=== PATIENT | female | born 1940 | race Caucasian/White ===

== ENCOUNTER 2020-05-20 17:39 | Emergency (ER) | payer MEDICARE, SELFPAY ==
--- NOTE | ~2020-05-20 | XR_ITS ---
EXAMINATION: XR hand LT min 3V DATE: 05/20/2020 18:49 INDICATION: Left hand pain and bruising post fall 3 days prior TECHNIQUE: Posteroanterior, oblique and lateral views of the left hand were obtained. COMPARISON: None. FINDINGS: There are normally displaced oblique extra-articular diaphyseal fractures of the left fourth and fift h metacarpals, both with mild palmar angulation. No other fractures identified. Polyarticular osteoar thritis, severe at the first carpometacarpal and second fifth distal interphalangeal joints, moderate severity at the triscaphe and third distal interphalangeal joint and mild at the left wrist, midcarp al and multiple metacarpophalangeal and multiple additional interphalangeal joints. Mild degenerative cystic change versus chronic erosions at the tip of the ulnar styloid process. Diffuse osteopenia. S oft tissue swelling over the dorsum of the hand. IMPRESSION: 1. Minimally displaced, mildly angulated extra-articular fractures of the fourth and fifth metacarpal diaphyses. 2. Mild to severe polyarticular osteoarthritis at the left hand and wrist. 3. Diffuse osteopenia. Reviewed, dictated and finalized at location A. IMPRESSION: 1. Minimally displaced, mildly angulated extra-articular fractures of the fourt h and fifth metacarpal diaphyses. 2. Mild to severe polyarticular osteoarthritis at the left hand and wrist. 3. Diffuse osteopenia.
[2020-05-20 17:49] VITALS: BP 127/72; PULSE 99; RESP 16; TEMP 36.3; O2SAT 99
--- NOTE | 2020-05-20 18:00 | ED.GENADULT ---
HPI - General Adult General Chief complaint: Extremity Injury, Upper Stated complaint: left hand injury Time Seen by Provider: 05/20/20 17:45 Source: patient Mode of arrival: ambulatory Limitations: no limitations History of Present Illness HPI narrative: Patient is a 79-year-old female who presents to emergency department for evaluation of left hand injury that occurred patient notes that she tripped and fell on injuring the hand where she now has bruising and swelling with tenderness over the third through fifth metacarpals patient notes abrasion of the left wrist with minimal pain patient denies other injuries or complaints and is otherwise resting comfortably in the room upon arrival in no distress and has not been seen for this complaint Related Data Home Medications Medication Instructions Recorded Confirmed calcium carbonate 600 mg PO BID 06/28/19 09/02/19 cholecalciferol (vitamin D3) 5,000 unit PO DAILY 06/28/19 09/02/19 [Vitamin D3] furosemide 20 mg PO DAILY 06/28/19 09/02/19 vitamins A,C,O-oqwy-lwuapo 14,320 1 cap PO BID 09/02/19 09/02/19 unit-226 mg-200 unit capsule Allergies Allergy/AdvReac Type Severity Reaction Status Date / Time codeine Allergy Unknown unknown Verified 05/20/20 18:10 Sulfa (Sulfonamide Allergy Unknown unknown Verified 05/20/20 18:10 Antibiotics) sulfamethizole Allergy Unknown Pruritic Verified 05/20/20 18:10 rash trimethoprim Allergy Unknown Pruritic Verified 05/20/20 18:10 rash Review of Systems Review of Systems: All systems reviewed & are unremarkable except as noted in HPI and below PMFSH Past Medical History Medical History Breast cancer (~05/01/14) right, stage IIa DVT (deep venous thrombosis) Family history of heart disease Hyperlipidemia LDL goal <100 Osteoarthritis involving multiple joints on both sides of body Paroxysmal supraventricular tachycardia since her Pulmonary embolism (~09/2013) Surgical History Surgical History H/O right mastectomy (~05/04/14) right partial mastectomy w/ rt axillary sentinel node biopsy (Dr. Kimmy Blanc) per [facility] care records Family History Family History (Updated 09/02/19 @ 15:39 by Jacquie Kay, ) Mother Family history of osteoporosis Hypertension Cerebrovascular accident Father Heart disease Sibling Lymphoma Other Family history of arthritis Social History Social History Smoking status: Never smoker Alcohol intake: never Substance use: never Gender identity (if verbalized by the patient): Female Spiritual care concerns: No Exam Narrative: Exam Narrative: GENERAL: Well-appearing, well-nourished, and in no acute distress. HEAD: Normocephalic, atraumatic. EYES: PERRLA and EOMI. ENT: Nares clear, no rhinorrhea or epistaxis. Mucous membranes moist. CHEST: Clear to auscultation. No respiratory distress. No wheezes rales or rhonchi HEART: Regular rate and rhythm. No murmur heard. EXTREMITIES: Normal range of motion. No edema. Bruising swelling and tenderness of the dorsal surface of the left hand extending to the wrist does not have tenderness of the wrist. Abrasion of the elbow no tenderness or swelling SKIN: Warm, dry, no rash. NEURO: No focal deficits. Alert and oriented x3. Neurovascularly intact. Capillary refill less than 2 seconds PSYCH: Normal mood and affect. Course Course Emergency Course: Patient in the room in no distress placed in ulnar gutter splint will be referred to hand surgery for further evaluation patient agrees with this plan. Attempts were made to contact hand surgery Consultations Consultation #1: Discussed case with hand surgeon who will follow patient in clinic Date: 05/20/20 Time: 19:29 Vital Signs Vital signs: Vital Signs Temperature 97.4
--- NOTE | 2020-05-20 18:09 | PC.NURSE ---
Patient had ring removed from the left 4th finger due to swelling and injury to the left hand. Patient's ring was placed into a clean specimen cup and given directly to the patient.
[2020-05-20 19:44] VITALS: BP 135/88; PULSE 89; RESP 20; TEMP 36.6; O2SAT 99
== END 2020-05-20 19:51 | disposition home or self-care (01) ==
PROVIDERS: Emergency Provider Emergency Medicine; PCP Family Medicine
DX: S62.395A Other fracture of fourth metacarpal bone, left hand, initial encounter for closed fracture (principal); S62.397A Other fracture of fifth metacarpal bone, left hand, initial encounter for closed fracture; E78.5 Hyperlipidemia, unspecified; M19.90 Unspecified osteoarthritis, unspecified site; Z86.711 Personal history of pulmonary embolism; Z86.718 Personal history of other venous thrombosis and embolism; Z90.11 Acquired absence of right breast and nipple; Z85.3 Personal history of malignant neoplasm of breast; M85.842 Other specified disorders of bone density and structure, left hand; M19.032 Primary osteoarthritis, left wrist; M18.9 Osteoarthritis of first carpometacarpal joint, unspecified; M19.042 Primary osteoarthritis, left hand; W01.0XXA Fall on same level from slipping, tripping and stumbling without subsequent striking against object, initial encounter
CPT/HCPCS: 29125; 73130; 99284; A4565

== ENCOUNTER 2020-06-13 01:43 | Outpatient (CLI) | payer MEDICARE, SELFPAY ==
[2020-06-13 19:05] LABS: SARS-CoV-2 RNA PCR Negative
== END 2020-06-13 01:44 | disposition home or self-care (01) ==
LOC: ANHCOVIDDT 01:44
PROVIDERS: PCP Family Medicine; Visit Provider Plastic Surgery
DX: Z01.812 Encounter for preprocedural laboratory examination (principal); Z20.828 Contact with and (suspected) exposure to other viral communicable diseases
CPT/HCPCS: 87635; C9803; U0003

== ENCOUNTER 2020-06-15 01:25 | Day surgery (SDC) | payer MEDICARE, SELFPAY ==
[2020-06-13 12:27] VITALS: BMI 36.6
[2020-06-15] VITALS (8 sets, daily range): BP systolic 127–143; BP diastolic 57–78; PULSE 18–85; RESP 13–20; TEMP 36.3–36.5; O2SAT 94–99
--- NOTE | ~2020-06-15 | XR_ITS ---
EXAMINATION: XR surgery orthopedic DATE: 06/15/2020 12:01 INDICATION: Left fourth and fifth metacarpal fractures. Fluoroscopy utilized during open reduction an d internal fixation TECHNIQUE: 4 fluoroscopic images of the left hand were obtained during procedure performed by Dr. Sarah bashir. Radiologist was not present for the imaging or procedure. The amount of fluoroscopy time used dur ing this procedure was 0.3 minutes. COMPARISON: 05/20/2020 FINDINGS: Again seen are minimally displaced oblique diaphyseal fractures of the left fourth and fifth metacarp als. The fifth metacarpal fracture is now fixed with 3 screws. The fourth metacarpal fracture remains unfixed. Mild osteoarthritis at the first metacarpophalangeal joint. Expected small amount of gas in the soft tissues at the operative bed. IMPRESSION: 1. Screw fixation of the left fifth metacarpal fracture and no evident fixation of the fourth metacar pal fracture, both remaining minimally displaced in near-anatomic alignment. See procedure note for f urther detail. Reviewed, dictated and finalized at location B. IMPRESSION: 1. Screw fixation of the left fifth metacarpal fracture and no evident fixation of the fourth metacarpal fracture, both remaining minimally displaced in near- anatomic alignment. See procedure note for further detail.
--- NOTE | 2020-06-15 07:02 | WPDHPUPDATE1 ---
History and Physical Update Update Date/Time: 06/15/20 07:02 History and Physical has been reviewed, including an updated exam of the patient. There are NO changes in the patient's condition. Risks, benefits, and alternatives have been discussed and questions answered. Patient agrees to proceed with procedure.
[2020-06-15] MEDS: LACTATED RINGERS 1,000 ML 30 ML IV CONT ×2 (09:18→12:04)
--- NOTE | 2020-06-15 09:22 | WPDANESEPPF ---
Anes - Initial Pre Proc Eval Procedure: Operation Date: 06/15/20 10:30 Proposed Procedures p Open Reduction Internal Fixation Left Fifth, Possible Left Fourth Metacarpal Shaft Fracture - Uche Rosales MD Date/Time: 06/15/20 09:22 Surgeon: Uche Rosales MD Pre Op Diagnosis: left 5th and 4th metacarpal shaft fx Patient Data Age: 80 Gender: F Height: 5 ft 5 in Weight: 100 kg Allergies Allergy/AdvReac Type Severity Reaction Status Date / Time Sulfa (Sulfonamide Allergy Severe Swelling Verified 06/13/20 12:14 Antibiotics) sulfamethizole Allergy Severe Pruritic Verified 06/13/20 12:14 rash trimethoprim Allergy Severe Pruritic Verified 06/13/20 12:14 rash codeine Allergy Mild Nausea Verified 06/13/20 12:14 Home Medications Medication Instructions Recorded Confirmed Type calcium carbonate 600 mg PO BID 06/28/19 06/13/20 History cholecalciferol (vitamin D3) 5,000 unit PO DAILY 06/28/19 06/13/20 History [Vitamin D3] furosemide 20 mg PO DAILY PRN 06/28/19 06/13/20 History sertraline 100 mg tablet 100 mg PO DAILY #90 tablet 09/02/19 06/13/20 Rx vitamins A,C,C-cbdd-mgmuzw 14,320 1 cap PO BID 09/02/19 06/13/20 History unit-226 mg-200 unit capsule verapamil 180 mg tablet,extended 180 mg PO DAILY #90 tablet 03/01/20 06/13/20 Rx release apixaban 5 mg tablet 5 mg PO BID #90 tablet 04/14/20 06/13/20 Rx acetaminophen [Tylenol Arthritis 650 mg PO Q8H PRN #7 tablet 05/20/20 06/13/20 Rx Pain] Patient hx anesthesia problems: none Family hx anesthesia problems: none PMFSH Past Medical History Medical History Breast cancer (~05/01/14) right, stage IIa DVT (deep venous thrombosis) Family history of heart disease Hyperlipidemia LDL goal <100 Osteoarthritis involving multiple joints on both sides of body Paroxysmal supraventricular tachycardia since her ' Pulmonary embolism (~09/2013) Surgical History Surgical History H/O right mastectomy (~05/04/14) right partial mastectomy w/ rt axillary sentinel node biopsy (Dr. Kimmy Blanc) per [facility] care records Family History Family History Mother Family history of osteoporosis Hypertension Cerebrovascular accident Father Heart disease Sibling Lymphoma Other Family history of arthritis Social History Social History Smoking status: Never smoker Alcohol intake: never Substance use: never Substance use type: does not use Living arrangements: with family Gender identity (if verbalized by the patient): Female Spiritual care concerns: No Anes - Eval Final PreProcedure Day of Procedure 06/15/20 09:22 Patient weight: obese Heart: regular rate and rhythm Lungs: clear to auscultation Airway: Mallampati scale class II Neurological: alert and oriented Last oral intake: >/= 8 hours ASA classification: IV Emergent: no Anesthetic plan: proceed Anesthesia type and monitoring: general LMA and standard monitoring Informed Consent: The patient's anesthetic plan and its attendant risks and benefits were discussed with the patient/family/POA. Questions were solicited and answers provided to the satisfaction of the patient/family/POA.
[2020-06-15] MEDS: ceFAZolin 2 GM/D5W 50 ML 2 GM/50 ML BAG IVPB (09:44)
[2020-06-15 09:46] LABS: Anion Gap 8 mmol/L (8-16); Blood Urea Nitrogen 24 mg/dL (7-17); Calcium 8.9 mg/dL (8.4-10.2); Carbon Dioxide 29 mmol/L (22-30); Chloride 106 mmol/L (98-107); Estimated CRCL calculation 59 ml/min; Estimated Glomerular Filt Rate > 60; Glucose 99 mg/dL (65-105); Potassium 3.9 mmol/L (3.4-5.0); Sodium 143 mmol/L (137-145)
[2020-06-15] MEDS: LIDO 1%/EPINEPHRINE 1:100,000 20 ML VIAL 8 ML INFILTRATE (10:18)
--- NOTE | 2020-06-15 11:42 | PM.OP ---
Procedure Note - Brief Procedure Note - Brief Date of procedure: 06/15/20 Pre-op diagnosis: left 5th and 4th metacarpal shaft fx Post-op diagnosis: same Procedure performed: ORIF displaced 5th metacarpal fracture. Implants: 1.5 mm x 10.0 mm screws x 3. from Mod. Hand Set. Anesthesia: GLMA Surgeon: Uche Rosales MD Ladies Underwear Operator: Reji Estimated blood loss (mL): 6 Drains: No Packing: No Pathology: none sent Complications: No immediate complications Condition: stable Disposition: PACU
--- NOTE | 2020-06-15 12:29 | SUR.PHASEI ---
PT AWAKE AND ALERT. DENIES PAIN OR NAUSEA. MEETS DISCHARGE CRITERIA
--- NOTE | 2020-06-15 12:50 | P.OP_ITS ---
Procedure Note - Detailed Date of procedure: 06/15/20 Pre-op diagnosis: left 5th and 4th metacarpal shaft fx Post-op diagnosis: same Procedure performed: Open reduction and internal screw fixation of the displaced left 5th metacarpal fracture Description of procedure: The patient's hand was marked in the holding area. She was taken to the operating room and placed supine on the operating table. A time-out was held and confirmed. She was given LMA anesthesia. The extremity was prepped and draped in usual fashion. Markings were placed on the dorsal hand for incisions. The new C-arm images were reviewed. The dorsal hand was infiltrated with 1% lidocaine with epinephrine. The tourniquet was inflated to 250 mmHg and was up for 79 minutes. The incision was made as marked and dissection was carried through the subcutaneous tissue. Cutaneous nerves and extensor tendons were identified. The 5th metacarpal fracture was exposed ulnar to the extensor tendons, these were retracted radially. The fracture was begin raymon to show some callus and this was pried open with Brant elevator. We were able to mobilize the fragments. The scissoring rotation was corrected and the lobster clamp placed on the metacarpal and 31.5 mm screws were passed from the dorsal radial aspect to the lateral aspect these were 1.5 mm screws roughly 10 mm each. These provided satisfactory stability. the surgical site was irrigated some of the subcutaneous tissue was repaired with 4-0 Vicryl. The skin was closed with a running 5 0 nylon. A bulky bandage was applied after releasing the tourniquet. She is discharged home instructions in wound care and follow-up and has a prescription for hydrocodone 15. . Surgeon: Uche Rosales MD
== END 2020-06-15 13:30 | disposition home or self-care (01) ==
PROVIDERS: Anesthesiology; PCP Family Medicine; Visit Provider Plastic Surgery
PROC: (CPT 26615; principal; 2020-06-15 10:30)
DX: S62.327A Displaced fracture of shaft of fifth metacarpal bone, left hand, initial encounter for closed fracture (principal); S62.325A Displaced fracture of shaft of fourth metacarpal bone, left hand, initial encounter for closed fracture; X58.XXXA Exposure to other specified factors, initial encounter; I47.1 Supraventricular tachycardia; E78.5 Hyperlipidemia, unspecified; Z85.3 Personal history of malignant neoplasm of breast; Z86.711 Personal history of pulmonary embolism; Z79.01 Long term (current) use of anticoagulants; E66.9 Obesity, unspecified; Z68.36 Body mass index [BMI] 36.0-36.9, adult
CPT/HCPCS: 26615; 36415; 80048; A9270; C1713; J0690; J3010; J7120

== ENCOUNTER 2024-11-25 11:12 | Outpatient (CLI) | payer MEDICARE, SELFPAY ==
--- OUTSIDE RECORDS SUMMARY | 2024-11-25 12:00 | XMS_ITS | Clinical Summary ---
Author Organization [facility] Address [address] [place] [address] Care Team Providers Care Billboard Erector Name Role Phone Willian Schwartz MD Primary Care Provider [phone] Source Comments [facility],non-owned Affiliates and Associated Physician Practices is amultiple site organization consisting of ambulatory clinics and hospital sitesin [place], [place], [place] and [place]. This disclosure is being madepursuant to the Care Everywhere program and may not contain all informatio navailable regarding this patient. Last updated 18.[facility] Allergies Active Allergy Reactions Criticality Noted Date Comments Codeine 05/02/2014 Sulfa Drugs 05/02/2014 Medications * Be aware that medications may not be up to date on this document. Alwaysverify current medications with the patient. Medication Sig Dispensed Refills Start Date End Date Status verapamil CR (ISOPTIN-SR) 180 MG tablet Take 180 mg by mouth daily with breakfast. Active sertraline (ZOLOFT) 100 MG tablet TAKE ONE TABLET BY MOUTH ONCE DAILY 90 tablet 3 12/31/2017 Active Multiple Vitamins-Minerals (EYE VITAMINS PO) Take 1 tablet by mouth 2 times daily Active calcium carbonate (TUMS) 500 MG chew tablet Take 1 tablet by mouth at bedtime 30 tablet 11 08/06/2018 Active fluticasone propionate (FLONASE) 50 MCG/ACT nasal sprayIndications:All ergic Rhinitis,Nasal Signs and Symptoms [place] 2 sprays into each nostril once daily Reasons: Allergic Rhinitis, Signs and Symptoms of Nose Diseases 2 bottles 11 08/07/2018 Active Cholecalciferol 1000 UNITS Take 1 tablet by mouth once daily 30 tablet 11 08/07/2018 Active Additional Information Patient taking differently: 5,000 UnitsOral DAILY, Reported on 09/29/2018 apixaban (ELIQUIS) 5 MG tablet Take 1 tablet by mouth 2 times daily 60 tablet 3 08/06/2018 Active furosemide (LASIX) 20 MG tabletIndications:Pu lmonary hypertension (HCC) Take 1 tablet by mouth once daily 90 tablet 4 09/29/2018 Active Additional Information Patient taking differently:20 mg Oral DAILY,As needed, Reported on 05/04/2020 Active Problems Problem Noted Date Diagnosed Date Pulmonary hypertension 09/29/2018 Chronic respiratory failure with hypoxia 019 History of breast cancer in female 08/21/2018 Pulmonary embolus 08/03/2018 History of pulmonary embolism 03/23/2018 Osteopenia 11/26/2017 Breast cancer 04/18/2014 Cancer Staging:Clinical: Unsigned Pathologic:Stage IIA(T2, N0(i-), cM0) - Signed by Alba Carter MD on 02/04/2015 Overview (02/04/2015): Right, 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 ER/CO pos, Her-2 neg S/p 05/04/2014 partial mastectomy/SLN bx (Blanc): 2.2 cm IDC, margin neg. Grade 2/3. No LVI. 1 neg node OncotypeDx with low recurrence score of 6 Paroxysmal SVT (supraventricular tachycardia) Current mild episode of major depressive disorde r Immunizations Name Administration Dates Next Due INFLUENZA VACCINE 07/29/2018 INFLUENZA VACCINE, HIGH-DOSE , QUADR. (FLUZONE HIGH-DOSE QUADRIVALENT; 65Y+), 0.7 ML (HD-IIV4) 07/20/2019 PNEUMOCOCCAL PPSV23 09/29/2013 Family History Medical History Relation Name Comments Lymphoma Brother Heart Disease Father Hypertension Mother Stroke Mother Relation Name Status Comments Brother Father Mother Social History Tobacco Use Types Packs/Day Years Used Date Smoking Tobacco: Never Smokeless Tobacco: Never Alcohol Use Standard Drinks/Week Comments No 0 (1 standard drink = 0.6 oz pur e alcohol) Sex and Gender Information Value Date Recorded Sex Assigned at Not on file Gender Identity Not on file Sexual Orientation Not on file Last Filed Vital Signs Vital Sign Reading Time Taken Comments Blood Pressure 137/89 05/06/2022 1:57 PM CDT Pulse 90 05/06/2022 1:57 PM CDT Temperature 36.1 C (97 F) 05/06/2022 1:57 PM CDT Respiratory Rate 18 05/06/2022 1:57 PM CDT Oxygen Saturation 96% 05/06/2022 1:57 PM CDT Inhaled Oxygen Concentration - - Weight 102.8 kg (226 lb 9.6 oz) 05/03/2021 1:03 PM CDT Height 162.6 cm (5' 4 ) 05/04/2020 1:17 PM CDT Body Mass Index 38.9 05/04/2020 1:17 PM CDT Plan of Treatment Health Maintenance Due Date Last Done Comments MEDICARE AWV 12 MONTHS 1942 DTAP/TDAP/TD VACCINES (1 - Tdap) 1961 ZOSTER VACCINE (1 of 2) 1992 PNEUMOCOCCAL VACCINE 50+ (2 of 2 - PCV) 09/29/2014 09/29/2013 Respiratory Syncytial Virus (RSV) Vaccine Pt: or over 60 yrs (1 - 1-dose 75+ series) 2017 COVID-19 VACCINE ( - season) 2024 DEPRESSION SCREENING 08/18/2024 INFLUENZA VACCINE (Season Ended) 2025 07/20/2019, 07/29/2018, 04/29/2016, Additional history exists BONE DENSITY TESTING Completed 05/04/2020, 11/27/2017, 11/20/2015, Additional history exists HEPATITIS B VACCINE Aged Out No longe r eligible based on patient's age to complete this topic HIB VACCINE Aged Out No longer eligi ble based on patient's age to complete this topic HPV VACCINE Aged Out No longer eligi ble based on patient's age to complete this topic MENINGOCOCCAL (Group B) VACCINE SHARED DECISION-MAKING Aged Out No longer eligible based on patient's age to complete this topic MENINGOCOCCAL GROUPS A/C/Y/W VACCINE Aged Out No longer eligible based on patient's age to complete this topic Procedures Procedure Name Priority Date/Time Associated Diagnosis Comments DEXA BONE DENSITY AXIAL SKELETON Routine 05/04/2020 11:30 AM CDT Osteopenia, unspecified location Vitamin D deficiency, unspecified from Last 3 Months or Most Recently Relevant to Health Maintenance Results * BONE DENSITY AXIAL SKELETON(1OR MORE SITES)[id number] (05/04/2020 11:30 AM CDT) Anatomical Region Laterality Modality Other 05/04/2020 1:17 PM CDT Narrative 05/04/2020 5:09 PM CDT EXAMINATION: Dual energy x-ray absorptiometry of the lumbar spine and hip. CLINICAL INDICATION: Osteopenia and Vitamin D deficiency. Patient's height 64 in; weight 220 lb. FINDINGS: Detailed data from the exam is sent separately to the ordering physician and is also available on [employer]ment, the Radiology Department's computerized picture archive system. COMPARISON: Comparison is made to a prior study dated 11/27/2017. SUMMARY: BONE MINERAL DENSITY (BMD) lumbar spine (L1-4): Osteopenic; T-score -1.7, previously -1.1. BONE MINERAL DENSITY (BMD) left femoral neck: Osteopenic; T-score -2.1, previously -1.2. FRAX 10-year fracture risk Major osteoporotic fracture: 13%. Hip fracture: 3.5%. DEFINITIONS: T-score = Standard Deviation Normal: A value for bone mineral density(BMD) within 1 standard deviation of the young adult reference mean. (T-score above -1) Low bone mass(osteopenia): A value for bone mineral density(BMD) more than 1 standard deviation below the young adult mean, but less than 2.5 standard deviations below the young adult mean. ( T-score between -1 and -2.5) Osteoporosis: A value for bone mineral density 2.5 standard deviations or more below the young adult mean. ( T-score at or below -2.5) Severe osteoporosis: Osteoporosis + the presence of one or more fragility fractures. Please note that T-score values are important in determining increased risk for fractures. The T-score represents the standard deviation above or below the mean bone mineral density for young adults. With each -1 standard deviation decrease in bone mineral density, the risk for fracture doubles exponentially. A T-score of -1 will double the risk , and -2 will be 4 times the risk. As a rule of thumb, a T-score of -1 to -2.5 indicates increasing degrees of osteopenia. Dictated by Miguel Loera MD (Nuclear Medicine resident). This report was approved by Miguel Loera on 05/04/2020 1:18 PM . IDr. SARAH M.D. have personally reviewed and interpreted this examination/study. This report was electronically signed by SARAH TORREZ M.D. on 05/04/2020 5:09 PM . Procedure Note Sarah Torrez MD - 05/04/2020 EXAMINATION: Dual energy x-ray absorptiometry of the lumbar spine andhip. CLINICAL INDICATION: Osteopenia and Vitamin D deficiency. Patient'sheight 64 in; weight 220 lb. FINDINGS: Detailed data from the exam is sent separately to the ordering physician and is also available on [employer], the Radiology Department's computerized picture archive system. COMPARISON: Comparison is made to a prior study dated 11/27/2017. SUMMARY: BONE MINERAL DENSITY (BMD) lumbar spine (L1-4): Osteopenic; T-score -1.7, previously -1.1. BONE MINERAL DENSITY (BMD) left femoral neck: Osteopenic; T-score -2.1, previously -1.2. FRAX 10-year fracture risk Major osteoporotic fracture: 13%. Hip fracture: 3.5%. DEFINITIONS: T-score = Standard Deviation Normal: A value for bone mineral density(BMD) within 1 standarddeviation of the young adult reference mean. (T-score above -1) Low bone mass(osteopenia): A value for bone mineral density(BMD) morethan 1 standard deviation below the young adult mean, but less than 2.5 standard deviations below the young adult mean. ( T-score between -1 and -2.5) Osteoporosis: A value for bone mineral density 2.5 standard deviationsor more below the young adult mean. ( T-score at or below -2.5) Severe osteoporosis: Osteoporosis + the presence of one or morefragility fractures. Please note that T-score values are important in determining increased risk for fractures. The T-score represents the standard deviation aboveor below the mean bone mineral density for young adults. With each -1 standard deviation decrease in bone mineral density, the risk forfracture doubles exponentially. A T-score of -1 will double the risk , and -2will be 4 times the risk. As a rule of thumb, a T-score of -1 to -2.5indicates increasing degrees of osteopenia. Dictated by Miguel Loera MD (Nuclear Medicine resident). This report was approved by Miguel Loera on 05/04/2020 1:18 PM . I, Dr. SARAH TORREZ M.D. have personally reviewed and interpreted this examination/study. This report was electronically signed by SARAH TORREZ M.D. on05/04/2020 5:09 PM . Fer Arrednodo MD DEXA ORDERABLES from Last 3 Months or Most Recently Relevant to Health Maintenance Advance Directives * Full Code (Latest Code Status on File) Date Activated Date Inactivated Comments 08/04/2018 4:44 AM 08/06/2018 7:50 PM Care Teams Billboard Erector Relationship Specialty Start Date End Date Willian Schwartz MD [address] [place] [address] PCP - General 03/23/18
--- OUTSIDE RECORDS SUMMARY | 2024-11-25 12:00 | XMS_ITS | Clinical Summary ---
Author Organization [facility] [address] Address [address] [place] [address] Care Team Providers Care Licensed Massage Practitioner Name Role Phone Isabelle Britton MD Primary Care Provider Allergies Active Allergy Reactions Criticality Noted Date Comments Codeine Nausea & Vomiting Low Sulfa (Sulfonamide Antibiotics) Rash Medium Medications calcium carbonate (OS-CORINA) 1,500 mg (600 mg of elemental calcium) tablet Take 1 tablet (1,500 mg total) by mouth 2 (two) times a day Active sertraline (ZOLOFT) 100 mg tablet Take 1 tablet (100 mg total) by mouth daily 8 Active verapamil SR (CALAN SR) 180 mg CR tablet Take 1 tablet (180 mg total) by mouth daily Active cholecalciferol , vitamin D3, 1,000 unit tablet,chewable Take 2 tablet/chew tab by mouth daily Active ELIQUIS 5 mg tablet 1 tablet (5 mg total) 2 (two) times a day 3 9 Active vit S-U-opdrik-zinc -lutein 226-90-0.8-5 mg capsule Take by mouth Active fluticasone propionate (FLONASE) 50 mcg/actuation nasal spray Administer 1 spray into each nostril daily Active Active Problems Problem Noted Date Diagnosed Date Exertional chest pain 01/07/2019 PSVT (paroxysmal supraventricular tachycardia) 1 Pulmonary embolism without acute cor pulmonale 1 Encounters Date Type Department Care Team Description 09/07/2024 11:00 AM BARKEEPER Office Visit [facility] Cardiology at [address] [place] [address] Donovan Perez MD PSVT (paroxysmal supraventricular tachycardia) (Primary Dx) from Last 3 Months Surgical History Surgery Date Site/Laterality Comments VASCULAR SURGERY 08/18/2013 - 08/17/2014 MASTECTOMY 08/18/2013 - 08/17/2014 REPLACEMENT TOTAL KNEE 08/18/2014 - 08/17/2015 HAND SURGERY Medical History Medical History Date Comments PSVT (paroxysmal supraventricular tachycardia) Family History Medical History Relation Name Comments Heart disease Father Hypertension Mother Stroke Mother Relation Name Status Comments Father Mother Social History Tobacco Use Types Packs/Day Years Used Date Smoking Tobacco: Never Passive Smoke Exposure: Past Smokeless Tobacco: Never Tobacco Cessation:Counseling Given: Not Answered Alcohol Use Standard Drinks/Week Comments No 0 (1 standard drink = 0.6 oz pur e alcohol) AUDIT-C Answer Date Recorded Q1: How often do you have a drink containing alcohol? Never 06/18/2023 Q2: How many drinks containi ng alcohol do you have on a typical day when you are drinking? Patient does not drink Q3: How often do you have si x or more drinks on one occasion? Never 06/18/2023 Comments Unknown Sex and Gender Information Value Date Recorded Sex Assigned at Not on file Legal Sex Female 12:43 AM BARKEEPER Gender Identity Not on file Sexual Orientation Not on file Obstetrics History Last Filed Vital Signs Vital Sign Reading Time Taken Comments Blood Pressure 110/60 09/07/2024 11:13 AM BARKEEPER Pulse 102 09/07/2024 11:13 AM BARKEEPER Temperature - - Respiratory Rate - - Oxygen Saturation 95% 09/07/2024 11:13 AM BARKEEPER Inhaled Oxygen Concentration - - Weight 96.6 kg (213 lb) 09/07/2024 11:13 AM BARKEEPER Height 162.6 cm (5' 4 ) 09/07/2024 11:13 AM BARKEEPER Body Mass Index 36.56 09/07/2024 11:13 AM BARKEEPER Plan of Treatment Health Maintenance Due Date Last Done Comments Depression Screening 1942 Fall Risk Assessment 1942 DTaP/Tdap/Td Vaccine (1 - Tdap) 1953 Hepatitis B Screening 1960 Zoster Vaccine (1 of 2) 1992 Well Visit 65+ 2007 Pneumococcal vaccine 65+ (2 of 2 - PCV) 08/18/2017 08/18/2016, 08/18/2015, 10/08/2013 Osteoporosis Screening-Bone Density Scan 05/04/2022 05/04/2020, 05/04/2020, 11/27/2017, Additional history exists Covid-19 Vaccine (3 - 2023-2 5 season) 2024 03/01/2021, 02/08/2021 Influenza Vaccine (Season Ended) 2025 07/20/2019, 07/29/2018, 06/15/2013 Insurance MEDICARE MEDICARE [facility] MEDICARE [facility] MEDICARE SUPPLEMENT Care Teams Licensed Massage Practitioner Relationship Specialty Start Date End Date Isabelle Britton MD [facility] [address] PCP - General Family Practice 03/03/24
--- OUTSIDE RECORDS SUMMARY | 2024-11-25 12:00 | XMS_ITS | Referral Summary ---
Author Organization [facility] [address] Address [address] [place] [address] Care Team Providers Care Assistant News Director Name Role Phone Isabelle Britton MD Primary Care Provider Encounters Date Type Department Care Team Description 09/07/2024 11:00 AM WELT STITCHER Office Visit [facility] Medical Group Cardiology at [address] [place] [id number] Donovan Perez MD PSVT (paroxysmal supraventricular tachycardia) (Primary Dx) from Last 3 Months Allergies Active Allergy Reactions Criticality Noted Date [...] times a day 3 9 Active vit O-B-fprwkl-zinc -lutein 226-90-0.8-5 mg capsule Take by mouth Active fluticasone propionate (FLONASE) 50 mcg/actuation nasal spray Administer 1 spray into each nostril daily Active Active Problems Problem Noted Date Diagnosed Date Exertional chest pain 01/07/2019 PSVT (paroxysmal supraventricular tachycardia) 1 Pulmonary embolism without acute cor pulmonale 1 Social History Tobacco Use Types Packs/Day Years [...] on file Legal Sex Female 12:43 AM WELT STITCHER Gender Identity Not on file Sexual Orientation Not on file Last Filed Vital Signs Vital Sign Reading Time Taken Comments Blood Pressure 110/60 09/07/2024 11:13 AM WELT STITCHER Pulse 102 09/07/2024 11:13 AM WELT STITCHER Temperature - - Respiratory Rate - - Oxygen Saturation 95% 09/07/2024 11:13 AM WELT STITCHER Inhaled Oxygen Concentration - - Weight 96.6 kg (213 lb) 09/07/2024 11:13 AM WELT STITCHER Height 162.6 cm (5' 4 ) 09/07/2024 11:13 AM WELT STITCHER Body Mass Index 36.56 09/07/2024 11:13 AM WELT STITCHER Plan of Treatment Not on file Insurance MEDICARE MEDICARE [facility] MEDICARE [employer] MEDICARE SUPPLEMENT Care Teams Assistant News Director Relationship Specialty Start Date End Date Isabelle Britton MD [facility] [address] [address] PCP - General Family Practice 03/03/24
[2024-11-25 19:34] LABS: Alanine Aminotransferase 19 U/L (6-35); Albumin Level 4.3 g/dL (3.5-5.1); Alkaline Phosphatase 73 U/L (38-126); Anion Gap 9 mmol/L (4-12); Aspartate Amino Transferase 27 U/L (14-36); Bilirubin,Total 0.4 mg/dL (0.2-1.3); Blood Urea Nitrogen 21 mg/dL (7-17); Carbon Dioxide 32 mmol/L (22-30); Chloride 101 mmol/L (98-107); Estimated Glomerular Filt Rate > 60; Glucose 87 mg/dL (65-110); Potassium 4.3 mmol/L (3.4-5.0); Sodium 142 mmol/L (137-145)
[2024-11-25 20:53] LABS: Hemoglobin A1C 5.5 % (<5.7)
== END 2024-11-25 11:13 | disposition home or self-care (01) ==
LOC: ANHGOSHLAB 11:13
PROVIDERS: PCP Family Medicine; Visit Provider Family Medicine
DX: R73.03 Prediabetes (principal); I10 Essential (primary) hypertension
CPT/HCPCS: 36415; 80053; 83036

== ENCOUNTER 2025-06-03 09:16 | Outpatient (CLI) | payer MEDICARE, SELFPAY ==
--- OUTSIDE RECORDS SUMMARY | 2025-06-03 09:40 | XMS_ITS | Clinical Summary ---
Author Organization [facility] [place] [address] Address [address] [place] [address] Care Team Providers Care Gis Software Engineer Name Role Phone Isabelle Britton MD Primary [...] times a day 3 9 Active vit N-A-mgbcab-zinc -lutein 226-90-0.8-5 mg capsule Take by mouth Active fluticasone propionate (FLONASE) 50 mcg/actuation nasal spray Administer 1 spray into each nostril daily Active Active Problems Problem Noted Date Diagnosed Date Exertional chest pain 01/07/2019 PSVT (paroxysmal supraventricular tachycardia) 1 Pulmonary embolism without acute cor pulmonale 1 Encounters Date Type Department Care Team Description 03/15/2025 11:00 AM CDT Office Visit [facility] Medical Group Cardiology at [address] [place] [address] Donovan Perez MD PSVT (paroxysmal [...] on file Legal Sex Female 12:43 AM UNIT MANAGER Gender Identity Not on file Sexual Orientation Not on file Obstetrics History Last Filed Vital Signs Vital Sign Reading Time Taken Comments Blood Pressure 124/74 03/15/2025 10:58 AM CDT Pulse 88 03/15/2025 10:58 AM CDT Temperature - - Respiratory Rate - - Oxygen Saturation 96% 03/15/2025 10:58 AM CDT Inhaled Oxygen Concentration - - Weight 95.5 kg (210 lb 9.6 oz) 03/15/2025 10:58 AM CDT Height 162.6 cm (5' 4) 03/15/2025 10:58 AM CDT Body Mass Index 36.15 03/15/2025 10:58 AM CDT Plan of Treatment Health Maintenance Due [...] Additional history exists Covid-19 Vaccine (3 - 2024-2 6 season) 2025 03/01/2021, 02/08/2021 Influenza Vaccine (#1) 2025 9, 07/29/2018, 06/15/2013 Insurance MEDICARE MEDICARE [facility] MEDICARE [facility] MEDICARE SUPPLEMENT Care Teams Gis Software Engineer Relationship Specialty Start Date End Date Isabelle Britton MD [address] [facility] [place] [address] PCP - General Family Practice 03/03/24
--- OUTSIDE RECORDS SUMMARY | 2025-06-03 09:40 | XMS_ITS | Clinical Summary ---
Author Organization [facility] Address [address] [place] [address] Care Team Providers Care Ranch Supervisor Name Role Phone Willian Schwartz MD Primary Care Provider [phone] Source Comments [facility],non-owned Affiliates and Associated Physician Practices is amultiple site organization consisting of ambulatory clinics and hospital sitesin [place], [place], [place] and [place]. This disclosure is being madepursuant to the Care Everywhere program and may not contain all information available regarding this patient. Last updated 18.[facility] Allergies Active Allergy Reactions Criticality Noted Date Comments Codeine 05/02/2014 Sulfa Drugs 05/02/2014 Medications * Be aware that medications may not be up to date on this document. Alwaysverify current medications with the patient. verapamil CR (ISOPTIN-SR) 180 MG tablet Take 180 mg by mouth daily with breakfast. Active sertraline (ZOLOFT) 100 MG tablet TAKE ONE TABLET BY MOUTH ONCE DAILY 90 tablet 3 8 Active Multiple Vitamins-Mineral s (EYE VITAMINS PO) Take 1 tablet by mouth 2 times daily Active calcium carbonate (TUMS) 500 MG chew tablet Take 1 tablet by mouth at bedtime 30 tablet 11 8 Active fluticasone propionate (FLONASE) 50 MCG/ACT nasal sprayIndications :Allergic Rhinitis,Nasal Signs and Symptoms [place] 2 sprays into each nostril once daily Reasons: Allergic Rhinitis, Signs and Symptoms of Nose Diseases 2 bottles 11 8 Active Cholecalciferol 1000 UNITS Take 1 tablet by mouth once daily 30 tablet 11 8 Active Additional Information Patient taking differently: 5,000 UnitsOral DAILY, Reported on 09/29/2018 apixaban (ELIQUIS) 5 MG tablet Take 1 tablet by mouth 2 times daily 60 tablet 3 8 Active furosemide (LASIX) 20 MG tabletIndication s:Pulmonary hypertension (HCC) Take 1 tablet by mouth once daily 90 tablet 4 9 Active Additional Information Patient taking differently:20 mg [...] Right, 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 Grade 2/3. No LVI. 1 neg node OncotypeDx with low recurrence score of 6 Paroxysmal SVT (supraventricular tachycardia) Current mild episode of major depressive disorde r Immunizations Immunization Administration Dates Next Due INFLUENZA VACCINE 07/29/2018 [...] drink = 0.6 oz pur e alcohol) Comments No Sex and Gender Information Value Date Recorded Sex Assigned at Not on file Legal Sex Female 9:03 AM CDT Gender Identity Not on file Sexual Orientation [...] 1:03 PM CDT Height 162.6 cm (5' 4) 05/04/2020 1:17 PM CDT Body Mass Index [...] yrs (1 - 1-dose 75+ series) 2017 DEPRESSION SCREENING 08/18/2024 COVID-19 VACCINE (1 - season) 2025 INFLUENZA VACCINE (#1) 2025 9, 07/29/2018, 04/29/2016, Additional history exists BONE DENSITY [...] Results * BONE DENSITY AXIAL SKELETON(1OR MORE SITES)[id number] (05/04/2020 11:30 AM CDT) Anatomical Region Laterality Modality Other 05/04/2020 1:17 PM CDT Narrative 05/04/2020 5:09 PM CDT EXAMINATION: Dual energy x-ray absorptiometry of the lumbar spine and hip. CLINICAL INDICATION: Osteopenia and Vitamin D deficiency. Patient's height 64 in; weight 220 lb. FINDINGS: Detailed data from the exam is sent separately to the ordering physician and is also available on [employer], the Radiology Department's computerized picture archive system. [...] ordering physician and is also available on [employer], the Radiology Department's computerized picture archive system. [...] TORREZ M.D. on05/04/2020 5:09 PM . Fer Arredondo MD DEXA ORDERABLES Final Result from Last 3 Months or Most Recently Relevant to Health Maintenance Insurance MEDICARE [facility] MEDICARE Advance Directives * Full Code (Latest Code Status on File) Date Activated Date Inactivated Comments 08/04/2018 4:44 AM 08/06/2018 7:50 PM Care Teams Ranch Supervisor Relationship Specialty Start Date End Date Willian Schwartz MD [address] [place] [address] PCP - General 03/23/18
[2025-06-03 12:47] LABS: Hematocrit 43.6 % (37.0-47.0); Hemoglobin 13.8 g/dL (12.0-15.0); Immature Granulocyte Percent A 0.4 % (0-0.5); Lymphocytes Absolute Auto 1.25 K/mm3 (0.9-3.2); Mean Corpuscular HGB Conc 31.7 g/dl (32-36); Mean Corpuscular Hemoglobin 29.9 pg (26-34); Mean Corpuscular Volume 94.6 fl (80-100); Nucleated Red Blood Cells Absolute Auto 0.000 K/mm3 (0.0-0.012); Nucleated Red Blood Cells Perc 0.0 % (0.0-0.2); Platelet Count Result 237 k/mm3 (150-375); Red Blood Count 4.61 M/mm3 (4.2-5.4); White Blood Count 4.8 K/mm3 (4.5-10.0)
[2025-06-03 13:03] LABS: Alanine Aminotransferase 18 U/L (6-35); Albumin Level 4.3 g/dL (3.5-5.1); Alkaline Phosphatase 72 U/L (38-126); Anion Gap 8 mmol/L (4-12); Aspartate Amino Transferase 45 U/L (14-36); Bilirubin,Total 0.4 mg/dL (0.2-1.3); Blood Urea Nitrogen 32 mg/dL (7-17); Calcium 9.7 mg/dL (8.4-10.2); Carbon Dioxide 31 mmol/L (22-30); Chloride 101 mmol/L (98-107); Cholesterol 304 mg/dL (0-200); Estimated Glomerular Filt Rate > 60; Glucose 89 mg/dL (65-110); HDL Direct 58 mg/dL; Magnesium 2.2 mg/dL (1.6-2.3); Potassium 5.0 mmol/L (3.4-5.0); Sodium 140 mmol/L (137-145); Total Protein 8.0 g/dL (6.3-8.2); Triglycerides 84 mg/dL (<150)
[2025-06-03 13:25] LABS: Thyroid Stimulating Hormone Reflex 5.400 uIU/mL (0.465-4.68)
[2025-06-03 14:00] LABS: Free T4 Free Thyroxine Reflex 0.96 ng/dL (0.78-2.19)
[2025-06-03 14:52] LABS: Hemoglobin A1C 5.2 % (<5.7)
[2025-06-03 15:00] LABS: Vitamin B12 505.0 pg/mL (239-931)
[2025-06-03 15:25] LABS: Total Triiodothyronine (T3) 1.34 NG/ML (0.82-1.58)
== END 2025-06-03 09:17 | disposition home or self-care (01) ==
PROVIDERS: PCP Nurse Practitioner Family; Visit Provider Nurse Practitioner Family
DX: E78.5 Hyperlipidemia, unspecified (principal); I10 Essential (primary) hypertension; E55.9 Vitamin D deficiency, unspecified; R73.03 Prediabetes
CPT/HCPCS: 36415; 80053; 80061; 82306; 82607; 83036; 83735; 84439; 84443; 84480; 85025